=== PATIENT | male | born 1970 | race Caucasian/White ===

== ENCOUNTER → 2019-06-21 | Outpatient (CLI) | payer OTHER ==
[2019-06-21 11:11] LABS: HGB 14.7 gm/dL (13.0-17.5); MCH 30.2 pg (25.0-35.0); MCHC 34.1 g/dL (31.0-37.0); MCV 88.5 fL (80.0-100.0); Platelet Count 179 k/uL (150-450); RBC 4.86 m/uL (4.30-5.90); RDW 13.5 % (11.5-15.5); WBC 5.8 k/uL (3.8-10.6)
== END ==
LOC: LABPAT 10:14
PROVIDERS: ATTEND Surgery
DX: Z01.812 Encounter for preprocedural laboratory examination (principal); K40.90 Unilateral inguinal hernia, without obstruction or gangrene, not specified as recurrent
CPT/HCPCS: 36415; 85027

== ENCOUNTER 2019-06-26 08:36 | Day surgery (SDC) | payer OTHER ==
[2019-06-20 10:26] VITALS: BMI 29.9
[~2019-06-26 08:36] MED LIST: DEXAMETHASONE SOD PHOSPHATE 10 MG/ML 1 ML VIAL IV ONE; HEPARIN SODIUM,PORCINE 5,000 UNIT/ML 1 ML VIAL SQ ONE; HYDROmorphone 0.5 MG/0.5 ML SYRINGE IVP PRN; LIDOCAINE 1% 20 ML VIAL (10MG/ML) FOR IV START INTRADERMA PRN; ONDANSETRON 4 MG/2 ML VIAL IVP ONE; SCOPOLAMINE 1.5MG/72HR PATCH TRANSDERM ONE
--- NOTE | 2019-06-26 08:57 | P.GSHP ---
History of Present Illness H&P Date: 06/26/19 Chief Complaint: Right inguinal hernia 49-year-old male seen in the office over the last few months with complaints of pain right groin. Started last June. He has a bulge there as well. 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 Pain aggravated with movement. 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 Past Medical History Past Medical History: Atrial Fibrillation Additional Past Medical History / Comment(s): hernia,medro dose pack June 2019 tx sorethroat,afib dx 2012,close head injury 2005 History of Any Multi-Drug Resistant Organisms: None Reported Past Surgical History: No Surgical Hx Reported Additional Past Surgical History / Comment(s): anesthesia for dental work Past Anesthesia/Blood Transfusion Reactions: No Reported Reaction Additional Past Anesthesia/Blood Transfusion Reaction / Comment(s): no blood transfusion Smoking Status: Former smoker - Past Family History Mother Family Medical History: No Reported History Medications and Allergies Home Medications Medication Instructions Recorded Confirmed Type Aspirin 81 mg PO DAILY 06/20/19 06/20/19 History Atenolol [Tenormin] 25 mg PO QAM 06/20/19 06/20/19 History Omeprazole 20 mg PO QAM 06/20/19 06/20/19 History Allergies Allergy/AdvReac Type Severity Reaction Status Date / Time No Known Allergies Allergy Verified 06/26/19 08:54 Surgical - Exam Physical exam: General: Well-developed, well-nourished HEENT: Normocephalic, sclerae nonicteric Abdomen: Nontender, nondistended, reducible right inguinal hernia Extremities: No edema Neuro: Alert and oriented Assessment and Plan (1) Right inguinal hernia Narrative/Plan: Option review the patient in detail. We'll proceed with laparoscopic da Cinthia assisted repair right inguinal herniorrhaphy with mesh, possible bilateral, possible open. Risks of bleeding, infection, recurrence, bladder and bowel injury, numbness, nerve injury, conversion to an open procedure were discussed with the patient. The patient understands and wishes to proceed. Current Visit: Yes Status: Acute Code(s): K40.90 - UNIL INGUINAL HERNIA, W/O OBST OR GANGR, NOT SPCF RECUR SNOMED Code(s): 306881099
[2019-06-26 08:59] VITALS: RESP 16
[2019-06-26] MEDS ORDERED: LIDOCAINE 1% 20 ML VIAL (10MG/ML) FOR IV START INTRADERMA ONE (09:15)
[2019-06-26] MEDS: LACTATED RINGERS 1,000 ML IV SCH (09:15)
[2019-06-26] MEDS ORDERED: PROPOFOL 10 MG/ML 20 ML VIAL IV ONE (09:29)
[2019-06-26] MEDS ORDERED: NEOSTIGMINE 1 MG/ML 10 ML VIAL ONE (09:29)
[2019-06-26] MEDS ORDERED: KETOROLAC 30 MG/ML 1 ML VIAL ONE (09:29)
[2019-06-26] MEDS ORDERED: MIDAZOLAM 2 MG/2 ML VIAL ONE (09:29)
[2019-06-26] MEDS ORDERED: ROCURONIUM BROMIDE 10 MG/ML 10 ML VIAL IV ONE (09:29)
[2019-06-26] MEDS ORDERED: GLYCOPYRROLATE 0.2 MG/ML 2 ML VIAL ONE (09:29)
[2019-06-26] MEDS ORDERED: ePHEDrine SULFATE/0.9% NACL/PF 50 MG/5 ML SYRINGE IV ONE (09:29)
[2019-06-26] MEDS ORDERED: KETAMINE 10 MG/ML 20 ML VIAL ONE (09:29)
[2019-06-26] MEDS ORDERED: SUCCINYLCHOLINE CHLORIDE 100 MG/5 ML SYR IV ONE (09:29)
[2019-06-26] MEDS ORDERED: LIDOCAINE 1% INJ 10MG/ML (20 ML MDV) ONE (09:29)
[2019-06-26] MEDS ORDERED: fentaNYL (PF) 50 MCG/ML 2 ML AMP ONE (09:29)
[2019-06-26] MEDS ORDERED: BUPIVACAIN-EPI 0.25%-1:200,000 30 ML VIAL SQ ONE (10:09)
[2019-06-26] MEDS ORDERED: LACTATED RINGERS 1,000 ML IV ONE (11:15)
[2019-06-26] MEDS ORDERED: LABETALOL SYRINGE 5 MG/ML IVP ONE (12:00)
[2019-06-26] MEDS ORDERED: LABETALOL 5 MG/ML VIAL MDV IVP ONE (12:06)
[2019-06-26] MEDS ORDERED: hydrALAZINE HCL 20 MG/ML 1 ML VIAL IVP ONE (12:07)
[2019-06-26] MEDS ORDERED: HYDROcodone/APAP 5-325MG 1 EACH TAB PO PRN (12:08)
[2019-06-26] MEDS ORDERED: NALOXONE 0.4 MG/ML 1 ML VIAL IV PRN (12:08)
--- NOTE | 2019-06-26 12:11 | P.OP ---
Date of Procedure: 06/26/19 Procedure(s) Performed: PREOPERATIVE DIAGNOSIS: Right inguinal hernia POSTOPERATIVE DIAGNOSIS: Bilateral inguinal hernia PROCEDURE: Laparoscopic repair bilateral inguinal hernia with the da Cinthia robot assistance with mesh SURGEON: Litzy EBL: Minimal ANESTHESIA: General COMPLICATIONS: None OPERATIVE PROCEDURE: Patient was placed in the operating table in the supine position. The patient was placed under general anesthesia. The abdomen was prepped and draped in usual sterile fashion. A small curvilinear supraumbilical incision was made. The fascia was retracted anteriorly with [place] forceps. The Veress needle was inserted. The saline drop test was normal. Insufflation took place to 15 mmHg. A 5 mm trocar was placed into the peritoneal cavity. This was later switched to a 12 mm trocar. 2 additional 8 mm trochars were placed in the right upper quadrant and left upper quadrant under visualization. The robotic arms were then brought in and docked into place. The fenestrated bipolar was used in the left arm and the laparoscopic douglas was utilized in the right arm. A 30 12 mm scope was used in the up position. The peritoneal cavity was inspected. Patient had an obvious direct hernia on the right side. A small indirect hernia was also identified in the left side. We decided to repair both hernias at this time. The right side was first addressed. The peritoneum was incised in a horizontal fashion cephalad to the internal inguinal ring. Following that careful dissection of the preperitoneal space took place. This took place using both electrocautery, sharp dissection but primarily blunt dissection. Visualization of the pubic tubercle and Sanjeev's ligament took place medially. Full dissection took place laterally as well. The hernia sac was fully dissected. The direct hernia was fairly large. I would estimate a 2 cm opening. The right side was then addressed. A slower incision was made in the peritoneum. The prevertebral space was again dissected. On the side and other small direct hernia was also identified during our dissection. Once we had adequate space bilaterally the 15 x 10 progrip mesh was advanced into the preperitoneal space and flattened out appropriately to cover all potential hernia sites. The 2 portions of mesh were allowed to cover one another in the midline anterior to the bladder. No sutures were used. The peritoneal defect was then closed using 2 separate 2-0 VLok sutures. The pneumoperitoneum was then evacuated. The fascia at the 12 mm site was closed using the Sherman Morgan technique and an 0 Vicryl stitch. The skin of all 3 sites was closed using a 4-0 Monocryl stitch. Skin glue was then applied. DISPOSITION: Stable to recovery room
[2019-06-26 12:13] VITALS: TEMP 99.7
[2019-06-26 12:24] LABS: Glucose,Whole Blood 115 mg/dL (75-99)
[2019-06-26 14:22] VITALS: BP 131/84; PULSE 80
== END 2019-06-26 14:22 | disposition home or self-care (01) ==
LOC: OR 08:36
PROVIDERS: ATTEND Surgery
DX: K40.20 Bilateral inguinal hernia, without obstruction or gangrene, not specified as recurrent (principal); I48.91 Unspecified atrial fibrillation; Z87.820 Personal history of traumatic brain injury; Z87.891 Personal history of nicotine dependence; Z79.82 Long term (current) use of aspirin; Z79.899 Other long term (current) drug therapy

== ENCOUNTER 2019-08-21 08:59 | Day surgery (SDC) | payer OTHER ==
[2019-08-16 15:53] VITALS: BMI 30.1
[~2019-08-21 08:59] MED LIST changes: -DEXAMETHASONE SOD PHOSPHATE 10 MG/ML 1 ML VIAL IV ONE; -HEPARIN SODIUM,PORCINE 5,000 UNIT/ML 1 ML VIAL SQ ONE; -HYDROmorphone 0.5 MG/0.5 ML SYRINGE IVP PRN; +LACTATED RINGERS 1,000 ML IV SCH; -ONDANSETRON 4 MG/2 ML VIAL IVP ONE; -SCOPOLAMINE 1.5MG/72HR PATCH TRANSDERM ONE
[2019-08-21 09:48] VITALS: RESP 16; TEMP 98.4
[2019-08-21] MEDS ORDERED: PROPOFOL 10 MG/ML 20 ML VIAL IV ONE (10:09)
--- NOTE | 2019-08-21 10:40 | P.PCN ---
Date of Procedure: 08/21/19 Procedure(s) Performed: PREOPERATIVE DIAGNOSIS: Rectal bleeding POSTOPERATIVE DIAGNOSIS: Diverticulosis, perianal skin tag, hemorrhoids PROCEDURE: Colonoscopy with excision perianal skin tag ANESTHESIA: MAC SURGEON: Fernandez Mcghee M.D. SPECIMENS: Skin tag ENDOSCOPIC PROCEDURE: The patient was placed on the endoscopy table in the left decubitus position. The Olympus colonoscope was inserted into the anus and passed under direct visualization to the base of the cecum. The appendiceal orifice was visualized. From that point the scope was slowly withdrawn inspecting all surfaces carefully. There were no neoplastic inflammatory or polypoid lesions throughout the cecum, ascending, transverse, descending, sigmoid and rectum. There was mild scattered diverticulosis noted. Digital rectal examination revealed both internal and external hemorrhoids. More of an internal component. Patient had a 1 cm skin tag in the left lateral position. The left side is the area where the patient noticed something protruding. We decided to proceed with excision. The area was localized after prepping that a geovanna sterilely. A 3-0 Vicryl stitch was used to ligate the skin tag site. Small amount of bruising from the localization noted. No active bleeding. The patient was taken to the recovery room in stable condition per anesthesia guidelines. RECOMMENDATIONS: Increase fiber. Follow-up office 1 month.
[2019-08-21 11:29] VITALS: BP 126/86; PULSE 56
== END 2019-08-21 11:51 | disposition home or self-care (01) ==
LOC: ORWHC2ENDO 08:59
PROVIDERS: ATTEND Surgery
DX: K57.31 Diverticulosis of large intestine without perforation or abscess with bleeding (principal); K64.4 Residual hemorrhoidal skin tags; K64.8 Other hemorrhoids; K21.9 Gastro-esophageal reflux disease without esophagitis; I48.91 Unspecified atrial fibrillation; Z87.891 Personal history of nicotine dependence; Z79.82 Long term (current) use of aspirin; Z79.899 Other long term (current) drug therapy; Z88.4 Allergy status to anesthetic agent
CPT/HCPCS: 88304; 45378; J2704

== ENCOUNTER → 2019-09-24 | Outpatient (CLI) | payer OTHER ==
--- NOTE | 2019-09-24 12:59 | XR ---
EXAMINATION TYPE: XR chest 2V DATE OF EXAM: 09/24/2019 COMPARISON: CT chest 05/22/2013 HISTORY: Shortness of breath TECHNIQUE: Frontal and lateral views of the chest are obtained. FINDINGS: Patient is rotated. There is no focal air space opacity, pleural effusion, or pneumothorax seen. The cardiac silhouette size is within normal limits. The osseous structures are intact. IMPRESSION: No acute cardiopulmonary process.
== END | disposition home or self-care (01) ==
LOC: RADXRMAIN 10:59
PROVIDERS: ATTEND Internal Medicine
DX: R06.02 Shortness of breath (principal)
CPT/HCPCS: 71046

== ENCOUNTER 2024-10-13 09:43 | Observation (INO) | payer OTHER ==
--- NOTE | 2024-10-13 10:24 | ED ---
General Adult HPI - General Chief complaint: Nausea/Vomiting/Diarrhea Stated complaint: Fall,Vomiting,Diarrhea Time Seen by Provider: 10/13/24 10:18 Source: patient, family (Patient's mother), RN notes reviewed Mode of arrival: ambulatory Limitations: no limitations - History of Present Illness Initial comments: Patient is a 54-year-old male presenting to the ER for evaluation of fall. 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 He states he was ice-skating for approximately 9 hockey games. Patient states on his way home last night he stopped at a gas station and got a soda. He states this was a phone soda that tasted abnormal so he dumped it out. He states when he got home he ate a market male from [employer] and went to bed. Patient reports around 4 AM he woke up and had multiple bouts of emesis and diarrhea. He denies any hemtaemesis or melena. He does states hematochezia but reports he has a hemorrhoid and this is normal for him. Patient reports he went back to bed to lay down and was tossing and turning for another hour until he finally got up to go downstairs and get a drink of water. Patient remembers walking to the stairs and the next thing he remembers is waking up at the bottom of the stairs with his mother standing over him. Patient is not on any blood thinners. Mother reports she heard him fall and immediately got out of bed and found him down. Complaining of neck discomfort. He does report a remote history of atrial fibrillation for which he takes atenolol. Patient is currently complaining of a sore chest discomfort with radiation to his back. Denies shortness of breath, dizziness, lightheadedness, abdominal pain, urinary complaints or peripheral edema. - Related Data Home Medications Medication Instructions Recorded Confirmed Omeprazole 20 mg PO DAILY 06/20/19 10/13/24 Levothyroxine Sodium [Synthroid] 50 mcg PO DAILY 10/13/24 10/13/24 atenoloL [Tenormin] 50 mg PO DAILY 10/13/24 10/13/24 Allergies Allergy/AdvReac Type Severity Reaction Status Date / Time fentanyl AdvReac apnea Verified 10/13/24 13:05 Review of Systems ROS Statement: Those systems with pertinent positive or pertinent negative responses have been documented in the HPI. ROS Other: All systems not noted in ROS Statement are negative. Past Medical History Past Medical History: Atrial Fibrillation Additional Past Medical History / Comment(s): hernia,medro dose pack June 2019 tx sorethroat,afib dx 2012,close head injury 2005 History of Any Multi-Drug Resistant Organisms: None Reported Past Surgical History: Hernia Repair Additional Past Surgical History / Comment(s): hernesto inguinal hernia repair 06-26-19,anesthesia for dental work Past Anesthesia/Blood Transfusion Reactions: Family History of Problems w/ Anesthesia Additional Past Anesthesia/Blood Transfusion Reaction / Comment(s): stated was given fentanyl post op for hernia repair on 06-26-19 causing apnea resulting in bag mask ventilation in recovery room. no hx blood transfusion Past Psychological History: No Psychological Hx Reported Smoking Status: Never smoker Past Alcohol Use History: None Reported Past Drug Use History: Marijuana - Past Family History Mother Family Medical History: No Reported History General Exam Limitations: no limitations General appearance: alert, in no apparent distress Head exam: Present: atraumatic, normocephalic, normal inspection Eye exam: Present: normal appearance, PERRL, EOMI. Absent: scleral icterus, conjunctival injection, periorbital swelling Pupils: Present: normal accommodation ENT exam: Present: normal exam, normal oropharynx, mucous membranes moist Neck exam: Present: normal inspection, tenderness (sparspinal muscles), full ROM Respiratory exam: Present: normal lung sounds bilaterally. Absent: respiratory distress, wheezes, rales, rhonchi, stridor Cardiovascular Exam: Present: regular rate, normal rhythm, normal heart sounds. Absent: systolic murmur, diastolic murmur, rubs, gallop, clicks GI/Abdominal exam: Present: soft, normal bowel sounds. Absent: distended, tenderness, guarding, rebound, rigid Extremities exam: Present: normal inspection, full ROM, normal capillary refill. Absent: tenderness, pedal edema, joint swelling, calf tenderness Back exam: Present: normal inspection Neurological exam: Present: alert, oriented X3, CN II-XII intact Skin exam: Present: warm, dry, intact, normal color. Absent: rash Course Vital Signs 10/13/24 10/13/24 10/13/24 09:48 10:25 11:00 Temperature 98.3 F Pulse Rate 104 H 92 97 Respiratory 20 16 16 Rate Blood Pressure 127/77 105/100 131/91 O2 Sat by Pulse 97 96 95 Oximetry 10/13/24 10/13/24 12:16 13:09 Temperature Pulse Rate 91 96 Respiratory 16 16 Rate Blood Pressure 141/91 136/86 O2 Sat by Pulse 98 96 Oximetry - Reevaluation(s) Reevaluation #1: 10/13/24 12:[address] Pantoja for admission. 10/13/24 14:08 HEART score 3. EKG Findings - EKG Comments: EKG Findings:: EKG taken at 9: 57 showing a sinus rhythm. No acute ST segment or T wave abnormalities. Ventricular rate 92, SD interval 165, QRS duration 114, QT/QTc 358/407. Medical Decision Making - Medical Decision Making Was pt. sent in by a medical professional or institution (, PA, CARRY OUT CLERK AND SHELF STOCKER, urgent care, hospital, or senior living...) When possible be specific @ -No Did you speak to anyone other than the patient for history (EMS, parent, family, police, friend...)? What history was obtained from this source @ -Patient's mother, at bedside, aiding in HPI. Did you review nursing and triage notes (agree or disagree)? Why? @ -I reviewed and agree with nursing and triage notes Were old charts reviewed (outside hosp., previous admission, EMS record, old EKG, old radiological studies, urgent care reports/EKG's, senior living records)? Report findings @ -No old charts were reviewed Differential Diagnosis (chest pain, altered mental status, abdominal pain women, abdominal pain men, vaginal bleeding, weakness, fever, dyspnea, syncope, headache, dizziness, GI bleed, back pain, seizure, CVA, palpatations, mental health, musculoskeletal)? @ -Differential Syncope:Valvular disease, hypertrophic cardiomyopathy, pulmonary embolism, tamponade, tachycardia, bradycardia, NM, hypovolemia, hemorrhage, dissection, anemia, intracranial hemorrhage, seizure, hypoglycemia, carbon monoxide poisoning, this is not meant to be an all-inclusive list. EKG interpreted by me (3pts min.). @ -As above X-rays interpreted by me (1pt min.). @ -CXR negative for acute process. CT interpreted by me (1pt min.). @ -CT brain C-spine negative for acute bleed or mass effect. Remote right frontal lobe encephalomalacia prior to infarct or trauma. No cervical spine fractures or dislocations. U/S interpreted by me (1pt. min.). @ -None done What testing was considered but not performed or refused? (CT, X-rays, U/S, labs)? Why? @ -None What meds were considered but not given or refused? Why? @ -None Did you discuss the management of the patient with other professionals (professionals i.e. DrKaylene, PA, CARRY OUT CLERK AND SHELF STOCKER, lab, RT, psych nurse, hospice social worker, vector control specialist, teacher, program officer, outpatient case manager)? Give summary @ -Yes, case was discussed with Dr. Pantoja for admission. Was smoking cessation discussed for >3mins.? @ -No Was critical care preformed (if so, how long)? @ -No Were there social determinants of health that impacted care today? How? (Homelessness, low income, unemployed, alcoholism, drug addiction, transportatio n, low edu. Level, literacy, decrease access to med. care, [facility], rehab)? @ -No Was there de-escalation of care discussed even if they declined (Discuss DNR or withdrawal of care, Hospice)? DNR status @ -No What co-morbidities impacted this encounter? (DM, HTN, Smoking, COPD, CAD, Cancer, CVA, ARF, Chemo, Hep., AIDS, mental health diagnosis, sleep apnea, morbid obesity)? @ -History of atrial fibrillation. Was patient admitted / discharged? Hospital course, mention meds given and route, prescriptions, significant lab abnormalities, going to OR and other pertinent info. @ -Admitted. 54-year-old male presenting to the ER for evaluation of possible syncopal episode. History and physical exam completed. Vitals within normal limits. Patient no signs of acute distress ANO x 3. Exam benign. Syncopal workup will be obtained as patient does not remember falling and woke up on the ground at the bottom of the stairs. CBC remarkable for WBC 9.0 with a left shift of 8.3. D-dimer negative at 0.28. Troponin undetectable. CMP unimpressive. Urinalysis with 1+ ketones concerning of dehydration which is likely due to nausea vomiting diarrhea. Viral swabs negative. CT brain neg ative for acute process. Chest x-ray negative. EKG showed normal sinus rhythm. Patient given IV fluids and Toradol in the ER for pain control. Neck pain believed to be musculoskeletal in nature due to fall. Admission considered and discussed with Dr. Pantoja for cardiac rule out as there is a possible syncopal episode. Heart score 3. Serial troponins ordered. Patient is agreeable for admission. Case discussed with ED attending, Dr. Carrera. Undiagnosed new problem with uncertain prognosis? @ -No Drug Therapy requiring intensive monitoring for toxicity (Heparin, Nitro, Insulin, Cardizem)? @ -No Were any procedures done? @ -No Diagnosis/symptom? @ -Syncope/neck pain Acute, or Chronic, or Acute on Chronic? @ -Acute Uncomplicated (without systemic symptoms) or Complicated (systemic symptoms)? @ -Complicated Side effects of treatment? @ -No Exacerbation, Progression, or Severe Exacerbation? @ -No Poses a threat to life or bodily function? How? (Chest pain, USA, NM, pneumonia, PE, COPD, DKA, ARF, appy, cholecystitis, CVA, Diverticulitis, Homicidal, Suicidal, threat to staff... and all critical care pts) @ -Yes, ACS can lead to lethal cardiac arrhythmias. - Lab Data Result diagrams: 10/13/24 10:57 10/13/24 10:57 Lab Results 10/13/24 10/13/24 10/13/24 Range/Units 10:57 10:57 10:57 WBC 9.0 (3.8-10.6) k/uL RBC 4.56 (4.30-5.90) m/uL Hgb 14.3 (13.0-17.5) gm/dL Hct 41.1 (39.0-53.0) % MCV 90.3 (80.0-100.0) fL MCH 31.3 (25.0-35.0) pg MCHC 34.7 (31.0-37.0) g/dL RDW 12.8 (11.5-15.5) % Plt Count 176 (150-450) k/uL MPV 9.4 Neutrophils % 92 % Lymphocytes % 3 % Monocytes % 4 % Eosinophils % 1 % Basophils % 0 % Neutrophils # 8.3 H (1.3-7.7) k/uL Lymphocytes # 0.2 L (1.0-4.8) k/uL Monocytes # 0.4 (0-1.0) k/uL Eosinophils # 0.1 (0-0.7) k/uL Basophils # 0.0 (0-0.2) k/uL PT 10.7 (10.0-12.5) sec INR 1.0 (<1.2) APTT 23.6 (22.0-30.0) sec D-Dimer 0.28 (<0.60) mg/L FEU Sodium 135 L (137-145) mmol/L Potassium 4.1 (3.5-5.1) mmol/L Chloride 104 (98-107) mmol/L Carbon Dioxide 26 (22-30) mmol/L Anion Gap 5 mmol/L BUN 29 H (9-20) mg/dL Creatinine 0.75 (0.66-1.25) mg/dL Est GFR (CKD-EPI)AfAm >90 (>60 ml/min/1.73 sqM) Est GFR (CKD-EPI)NonAf >90 (>60 ml/min/1.73 sqM) Glucose 127 H (74-99) mg/dL Calcium 8.4 (8.4-10.2) mg/dL Magnesium 1.7 (1.6-2.3) mg/dL Total Bilirubin 1.3 (0.2-1.3) mg/dL AST 34 (17-59) U/L ALT 30 (4-49) U/L Alkaline Phosphatase 57 (38-126) U/L Troponin I (0.000-0.034) ng/mL Total Protein 6.7 (6.3-8.2) g/dL Albumin 4.5 (3.5-5.0) g/dL 10/13/24 Range/Units 10:57 WBC (3.8-10.6) k/uL RBC (4.30-5.90) m/uL Hgb (13.0-17.5) gm/dL Hct (39.0-53.0) % MCV (80.0-100.0) fL MCH (25.0-35.0) pg MCHC (31.0-37.0) g/dL RDW (11.5-15.5) % Plt Count (150-450) k/uL MPV Neutrophils % % Lymphocytes % % Monocytes % % Eosinophils % % Basophils % % Neutrophils # (1.3-7.7) k/uL Lymphocytes # (1.0-4.8) k/uL Monocytes # (0-1.0) k/uL Eosinophils # (0-0.7) k/uL Basophils # (0-0.2) k/uL PT (10.0-12.5) sec INR (<1.2) APTT (22.0-30.0) sec D-Dimer (<0.60) mg/L FEU Sodium (137-145) mmol/L Potassium (3.5-5.1) mmol/L Chloride (98-107) mmol/L Carbon Dioxide (22-30) mmol/L Anion Gap mmol/L BUN (9-20) mg/dL Creatinine (0.66-1.25) mg/dL Est GFR (CKD-EPI)AfAm (>60 ml/min/1.73 sqM) Est GFR (CKD-EPI)NonAf (>60 ml/min/1.73 sqM) Glucose (74-99) mg/dL Calcium (8.4-10.2) mg/dL Magnesium (1.6-2.3) mg/dL Total Bilirubin (0.2-1.3) mg/dL AST (17-59) U/L ALT (4-49) U/L Alkaline Phosphatase (38-126) U/L Troponin I <0.012 (0.000-0.034) ng/mL Total Protein (6.3-8.2) g/dL Albumin (3.5-5.0) g/dL - Radiology Data Radiology results: report reviewed, image reviewed Disposition Clinical Impression: Syncope, Neck pain Disposition: ADMITTED IP TO THIS [facility] Condition: Stable Time of Disposition: 12:15
--- NOTE | 2024-10-13 10:35 | XR ---
2 view chest HISTORY: Chest pain COMPARISON: 09/24/2019 TECHNIQUE: PA and lateral views chest obtained. FINDINGS: The lungs are clear of consolidative, interstitial or masslike opacity. There is no pleural effusion, pleural thickening or pneumothorax. The heart, pulmonary vasculature, mediastinum and jessi are within normal limits. The osseous structures and soft tissues of the thorax are intact. IMPRESSION: No significant abnormality. No acute cardiopulmonary disease. [facility], Workstation: [id number] 10/13/2024 10:33 AM
--- NOTE | 2024-10-13 11:02 | CT ---
EXAMINATION TYPE: CT brain lauren wo con DATE OF EXAM: 10/13/2024 COMPARISON: None CLINICAL INDICATION: Male, 54 years old with history of fall/ neck pain; PHH, LEFT SIDED NECK PAIN AF TER FALL TECHNIQUE: CT scan of the head and cervical spine are performed without contrast. CT DLP: [address] CTDI: mGy Automated exposure control for dose reduction was used. Findings: Head CT: Ventricles, basal cisterns and sulci over convexities within normal limits and there is no mass, mass effect or shift of midline structures. There is a focal area of encephalomalacia involving the right frontal cortex consistent with a remote infarct or prior trauma. There is no acute intra or extra-axial hemorrhage.. Posterior fossa including the brainstem, fourth ventricle and cerebellar pontine angles are grossly n ormal. The intraorbital contents appear normal and symmetric. Visualized paranasal sinuses are well aerated. CT cervical spine: Craniovertebral junction relationships and prevertebral soft tissues are normal. The cervical vertebral segments are normal in height and alignment and there is no fracture subluxati on. There is mild to moderate degenerative disease at the C5-6 level where there is mild spondylosis and disc space narrowing. There is mild degeneration of the vertebral joints lower cervical spine. There is mild bony neural foraminal stenosis at the C4-5 and C5-6 levels on the right. Paraspinal soft tissues unremarkable. No bony encroachment of the cervical canal. IMPRESSION: 1. Head CT: No acute bleed or mass effect. Remote right frontal lobe encephalomalacia from prior infa rct or trauma. 2. CT cervical spine: No acute trauma. Mild degenerative changes as described above. [facility], Workstation: [facility], 10/13/2024 11:00 AM
[2024-10-13] MEDS: SODIUM CHLORIDE 0.9% 1,000 ML IV STA ×2 (11:04→13:35)
[2024-10-13 11:33] LABS: Basophils % (A) 0 %; Eosinophils # (A) 0.1 k/uL (0-0.7); Eosinophils % (A) 1 %; HCT 41.1 % (39.0-53.0); HGB 14.3 gm/dL (13.0-17.5); Lymphocytes # (A) 0.2 k/uL (1.0-4.8); Lymphocytes % (A) 3 %; MCH 31.3 pg (25.0-35.0); MCHC 34.7 g/dL (31.0-37.0); MCV 90.3 fL (80.0-100.0); Mean Platelet Volume 9.4; Monocytes # (A) 0.4 k/uL (0-1.0); Monocytes % (A) 4 %; Neutrophils # (A) 8.3 k/uL (1.3-7.7); Neutrophils % (A) 92 %; Platelet Count 176 k/uL (150-450); RBC 4.56 m/uL (4.30-5.90); RDW 12.8 % (11.5-15.5)
[2024-10-13 11:45] LABS: Partial Thromboplastin Time 23.6 sec (22.0-30.0); Prothrombin Time 10.7 sec (10.0-12.5)
[2024-10-13 11:46] LABS: ALT 30 U/L (4-49); AST 34 U/L (17-59); African American GFR (CKD) >90 (>60 ml/min/1.73 sqM); Albumin 4.5 g/dL (3.5-5.0); Alkaline Phosphatase 57 U/L (38-126); Anion Gap 5 mmol/L; Blood Urea Nitrogen 29 mg/dL (9-20); Calcium 8.4 mg/dL (8.4-10.2); Carbon Dioxide 26 mmol/L (22-30); Chloride 104 mmol/L (98-107); Glucose 127 mg/dL (74-99); Magnesium 1.7 mg/dL (1.6-2.3); Non-African American GFR(CKD) >90 (>60 ml/min/1.73 sqM); Potassium 4.1 mmol/L (3.5-5.1); Sodium 135 mmol/L (137-145); Total Bilirubin 1.3 mg/dL (0.2-1.3); Total Protein 6.7 g/dL (6.3-8.2)
[2024-10-13] MEDS ORDERED: ACETAMINOPHEN TAB 325 MG TAB PO PRN (12:13)
[2024-10-13] MEDS ORDERED: NALOXONE 0.4 MG/ML 1 ML VIAL IV PRN (12:13)
[2024-10-13] MEDS: KETOROLAC 15 MG/ML 1 ML VIAL IVP STA (12:17)
[2024-10-13 12:37] LABS: Appearance,Urine Clear (Clear); Bilirubin,Urine Negative (Negative); Blood,Urine Negative (Negative); Color,Urine Light Yellow; Glucose,Urine (UA) Negative (Negative); Ketones,Urine 1+ (Negative); Leukocyte Esterase,Urine Negative (Negative); Nitrite,Urine Negative (Negative); Protein,Urine Negative (Negative); Specific Gravity,Urine 1.021 (1.001-1.035); Urobilinogen,Urine <2.0 mg/dL (<2.0)
[2024-10-13] MEDS: SODIUM CHLORIDE 0.9% 1,000 ML IV SCH (13:07)
--- NOTE | 2024-10-13 13:07 | P.HPIM ---
History of Present Illness H&P Date: 10/13/24 Marco Garcia, is a 54-year-old male who presented to [facility] emergency room with a chief complaint of syncope. Patient stated that he was then referred to you for multiple hockey games, he came back late at night and ate a frozen meal and went to sleep, he woke up several hours later with nausea vomiting and diarrhea, subsequently he felt dizzy and passed out going down 1 flight of stairs, he woke up on the bottom of the stairs, he is not sure for how long he was unconscious. He was evaluated in the emergency room vital examination on presentation revealed a temperature of 98.3 pulse 104 respiration 20 blood pressure 127/77 pulse ox 97% on room air Laboratory data revealed a white blood count of 9.0 hemoglobin 14.3 platelet count 176 D-dimer 0.28 troponin 0.012, COVID-19 and influenza A and B and RSV PCR are all negative. 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 Chest x-ray done in the emergency room revealed no significant abnormality no acute cardiopulmonary disease. Patient was admitted to medical floor for further evaluation and treatment Past medical history is significant for 1 episode of atrial fibrillation 12 years ago, history of closed head injury, history of gastroesophageal reflux disease On review of systems patient is alert and oriented x 3 in no apparent distress, he is complaining of neck pain, otherwise he denies any complaints at this time there is no fever or chills no headache or dizziness no chest pain no shortness of breath no cough no nausea or vomiting no abdominal pain no diarrhea and no urinary symptoms. Past Medical History Past Medical History: Atrial Fibrillation Additional Past Medical History / Comment(s): hernia,medro dose pack June 2019 tx sorethroat,afib dx 2012,close head injury 2005 History of Any Multi-Drug Resistant Organisms: None Reported Past Surgical History: Hernia Repair Additional Past Surgical History / Comment(s): hernesto inguinal hernia repair 06-26-19,anesthesia for dental work Past Anesthesia/Blood Transfusion Reactions: Family History of Problems w/ Anesthesia Additional Past Anesthesia/Blood Transfusion Reaction / Comment(s): stated was given fentanyl post op for hernia repair on 06-26-19 causing apnea resulting in bag mask ventilation in recovery room. no hx blood transfusion Past Psychological History: No Psychological Hx Reported Smoking Status: Never smoker Past Alcohol Use History: None Reported Past Drug Use History: Marijuana - Past Family History Mother Family Medical History: No Reported History Medications and Allergies Home Medications Medication Instructions Recorded Confirmed Type Aspirin 81 mg PO DAILY 06/20/19 08/16/19 History Omeprazole 20 mg PO QAM 06/20/19 08/16/19 History atenoloL [Tenormin] 25 mg PO QAM 06/20/19 08/16/19 History Allergies Allergy/AdvReac Type Severity Reaction Status Date / Time fentanyl AdvReac apnea Verified 10/13/24 09:52 Physical Exam Vitals: Vital Signs Temp Pulse Resp BP Pulse Ox 10/13/24 12:16 91 16 141/91 98 10/13/24 11:00 97 16 131/91 95 10/13/24 10:25 92 16 105/100 96 10/13/24 09:48 98.3 F 104 H 20 127/77 97 Intake and Output 10/12/24 10/13/24 10/13/24 22:59 06:59 14:59 Other: Weight 91.626 kg In general patient is alert and oriented x 3 in no distress HEENT head normocephalic and atraumatic Neck is supple no JVD no goiter no lymphadenopathy no carotid bruit Chest examination is clear to auscultation no crackles no wheezing Cardiac exam reveals regular heart sounds S1 and S2 no gallops no murmurs Abdomen is soft nontender no organomegaly with normal bowel sounds Extremity exam reveals no edema no cyanosis or clubbing Neurological examination reveals no gross focal deficits Results CBC & Chem 7: 10/13/24 10:57 10/13/24 10:57 Labs: Abnormal Lab Results - Last 24 Hours (Table) 10/13/24 10/13/24 10/13/24 Range/Units 10:57 10:57 12:25 Neutrophils # 8.3 H (1.3-7.7) k/uL Lymphocytes # 0.2 L (1.0-4.8) k/uL Sodium 135 L (137-145) mmol/L BUN 29 H (9-20) mg/dL Glucose 127 H (74-99) mg/dL Urine Ketones 1+ H (Negative) Assessment and Plan Plan: Gastroenteritis with nausea vomiting and diarrhea Mild dehydration with elevated BUN Syncopal episode Previous history of 1 episode of atrial fibrillation Underlying history of gastroesophageal reflux disease At this time patient was seen and examined Will check echocardiogram and carotid Doppler Cardiology consult requested Will monitor on telemetry Will follow in a.m.
--- NOTE | 2024-10-13 14:16 | US ---
EXAMINATION TYPE: US carotid duplex BILAT DATE OF EXAM: 10/13/2024 COMPARISON: NONE CLINICAL INDICATION: Male, 54 years old with history of Syncope; No HTN. Patient states he passed ou t. TECHNIQUE: Grayscale, color Doppler and spectral Doppler evaluation of the bilateral carotid systems and vertebral arteries. Indirect Doppler criteria was utilized. 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 No plaque seen. Color Doppler imaging shows patency with blood flow throughout the carotid artery. Spectral waveforms are within normal limits. IMPRESSION: Right: 50-69% stenosis of the carotid bifurcation. Left: 50-69% stenosis of the carotid bifurcation. Criteria for Assigning % of Stenosis / Diameter reduction (Estimation based on the indirect measurements of the internal carotid artery velocities (ICA PSV). 1. Normal (no stenosis)=ICA PSV < 125 cm/s: ratio < 2.0: ICA EDV<40 cm/s. 2. Less than 50% stenosis=ICA PSV < 125 cm/s: ratio < 2.0: ICA EDV<40 cm/s. 3. 50 to 69% stenosis=ICA PSV of 125 to 230 cm/s: ration 2.0 ? 4.0: ICA EDV 40-100 cm/s. 4. Greater than 70% stenosis to near occlusion= ICA PSV > 230 cm/s: ratio > 4.0: ICA EDV > 100 cm/s. 5. Near occlusion= ICA PSV velocities may be low or undetectable: variable ratio and ICA EDV. 6. Total occlusion=unable to detect flow. [facility], , 10/13/2024 2:14 PM
[2024-10-13] MEDS: PANTOPRAZOLE 40 MG TABLET PO SCH (14:48)
[2024-10-13] MEDS: ONDANSETRON 4 MG/2 ML VIAL IVP PRN (17:17)
[2024-10-13] MEDS: traMADol 50 MG TAB PO PRN (19:23)
[2024-10-14] MEDS: IBUPROFEN 400 MG TAB PO PRN (00:01)
[2024-10-14 07:34] VITALS: RESP 17
[2024-10-14 08:49] LABS: ALT 27 U/L (10-49); AST 31 U/L (14-35); Albumin 3.7 g/dL (3.8-4.9); Albumin/Globulin Ratio 2.18 Ratio (1.60-3.17); Alkaline Phosphatase 49 U/L (41-126); BUN/Creat Ratio 16.88 Ratio (12.00-20.00); Blood Urea Nitrogen 13.5 mg/dL (9.0-27.0); Calcium 7.9 mg/dL (8.7-10.3); Carbon Dioxide 24.4 mmol/L (21.6-31.8); Chloride 105 mmol/L (96-109); Globulin 1.7 g/dL (1.6-3.3); Glucose 104 mg/dL (70-110); Potassium 3.8 mmol/L (3.5-5.5); Sodium 138 mmol/L (135-145); Total Bilirubin 0.6 mg/dL (0.3-1.2); Total Protein 5.4 g/dL (6.2-8.2)
[2024-10-14 09:06] LABS: Basophils # (A) 0.01 X 10*3/uL (0.00-0.10); Basophils % (A) 0.3 %; Eosinophils # (A) 0 X 10*3/uL (0.04-0.35); Eosinophils % (A) 0 %; Lymphocytes # (A) 0.67 X 10*3/uL (0.90-5.00); Lymphocytes % (A) 18.7 %; MCH 30.8 pg (27.0-32.0); MCHC 34.3 g/dL (32.0-37.0); MCV 89.7 FL (80.0-97.0); Mean Platelet Volume 11.8 FL (9.5-12.2); Monocytes # (A) 0.41 X 10*3/uL (0.20-1.00); Monocytes % (A) 11.5 %; NRBC Per 100 WBC 0 X 10*3/uL (0.00-0.01); Neutrophils # (A) 2.48 X 10*3/uL (1.80-7.70); Neutrophils % (A) 69.2 %; Platelet Count 144 X 10*3/uL (140-440); RDW 12.3 % (11.5-14.5); WBC 3.58 X 10*3/uL (4.50-10.00)
[2024-10-14] MEDS: ENOXAPARIN 40 MG/0.4 ML SYRINGE SQ SCH (10:22)
--- NOTE | 2024-10-14 10:34 | US ---
EXAMINATION TYPE: US abdomen complete DATE OF EXAM: 10/14/2024 COMPARISON: NONE CLINICAL INDICATION: Male, 54 years old with history of Vomiting; vomiting TECHNIQUE: Grayscale and color Doppler imaging of the abdomen was performed. FINDINGS: EXAM MEASUREMENTS: Liver Length: 16.0 cm Gallbladder Wall: 0.2 cm CBD: 0.6 cm, color Doppler imaging was utilized to isolate the common bile duct for measurement. 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 The visualized abdominal aorta is within normal limits. There is no eviden ce of cholelithiasis. Common bile duct is unremarkable. The visualized portions of the pancreas are homogenous. The spleen is unremarkable. Kidneys are symmetric and free of hydronephrosis. No marlon l lesions are seen. IMPRESSION: No evidence for acute process. [facility], , 10/14/2024 10:32 AM
--- NOTE | 2024-10-14 10:47 | P.CRDCN ---
History of Present Illness Consult date: 10/14/24 Reason for Consult (text): Syncope History of present illness: This is a 54-year-old male with past medical history of hypertension, GERD, hypo thyroidism. We have been asked to evaluate patient for syncope. 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 He started vomiting around 4 in the morning and he thought he had food poisoning. The vomiting happened repeatedly and he had bilateral leg cramps and a little bit of diarrhea initially. He is feeling improved now and he has been maintained on IV fluids. Blood pressure 119/68, heart rate in the 60s to 100, pulse ox 98% on room air. -EKG: Sinus rhythm with no acute ST changes. -Chest x-ray: No acute abnormality -CT brain and cervical spine: No acute bleed or mass effect, no acute trauma in the cervical spine. 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 -Ultrasound of the abdomen: No acute process -Carotid ultrasound: 50 to 69% stenosis bilateral -Laboratory studies: WBC 3.5, hemoglobin 12, electrolytes are normal, BUN initially 29 now 13.5 and creatinine 0.8. Troponin negative x 3. Influenza A, influenza B, RSV, COVID-19 not detected. -Home cardiac medications: Atenolol 50 mg daily. -Echocardiogram 2016: EF 55 to 60%. Review Of Systems: At the time of my exam: CONSTITUTIONAL: Denies fever or chills. HEENT: Denies blurred vision, vision changes, or eye pain. Denies hemoptysis CARDIOVASCULAR: Denies chest pain. Denies orthopnea. Denies PND. Denies palpitations RESPIRATORY: Denies shortness of breath. GASTROINTESTINAL: Denies abdominal pain. Denies nausea or vomiting. HEMATOLOGIC: Denies bleeding disorders. GENITOURINARY: Denies any blood in urine. SKIN: Denies puritis. Denies rash. Physical examination: Gen: This is a 54-year-old male in no acute distress VS: reviewed HEENT: Head is atraumatic, normocephalic. Pupils equal, round. Sclerae is anicteric. NECK: Supple. No JVD. LUNGS: Clear to auscultation. No wheezes or rhonchi. No intercostal retractions. HEART: Regular rate and rhythm. No murmur. ABDOMEN: Soft No tenderness. EXTREMITIES: No pedal edema. No calf tenderness. NEUROLOGICAL: Patient is awake, alert and oriented x3. Assessment: Syncopal episode secondary to dehydration Nausea vomiting diarrhea Gastroenteritis History of hypertension GERD Hypothyroidism Plan: Resume patient's home cardiac medications Increase IV fluids to 100 cc/h Advance patient's diet Patient does not have to wait for the echocardiogram report Patient is cleared for discharge from cardiology perspective. Thank you kindly for this consultation. Nurse practitioner note has been reviewed, I agree with documented findings and plan of care. Patient was seen and examined. Past Medical History Past Medical History: Atrial Fibrillation Additional Past Medical History / Comment(s): hernia with repair,afib dx 2012,close head injury 2005 History of Any Multi-Drug Resistant Organisms: None Reported Past Surgical History: Hernia Repair Additional Past Surgical History / Comment(s): hernesto inguinal hernia repair 06-26-19,anesthesia for dental work Past Anesthesia/Blood Transfusion Reactions: Family History of Problems w/ Anesthesia Additional Past Anesthesia/Blood Transfusion Reaction / Comment(s): stated was given fentanyl post op for hernia repair on 06-26-19 causing apnea resulting in bag mask ventilation in recovery room. no hx blood transfusion Past Psychological History: No Psychological Hx Reported Smoking Status: Never smoker Past Alcohol Use History: None Reported Additional Past Alcohol Use History / Comment(s): quit smoking 2017,smoked socially Past Drug Use History: Marijuana Additional Drug Use History / Comment(s): uses THCS daily - Past Family History Mother Family Medical History: No Reported History Medications and Allergies Home Medications Medication Instructions Recorded Confirmed Type Omeprazole 20 mg PO DAILY 06/20/19 10/13/24 History Levothyroxine Sodium [Synthroid] 50 mcg PO DAILY 10/13/24 10/13/24 History atenoloL [Tenormin] 50 mg PO DAILY 10/13/24 10/13/24 History Allergies Allergy/AdvReac Type Severity Reaction Status Date / Time fentanyl AdvReac apnea Verified 10/13/24 13:05 Physical Exam Vitals: Vital Signs Temp Pulse Pulse Resp BP BP Pulse Ox 10/14/24 07:10 97.6 F 61 17 119/68 98 10/14/24 00:09 97.7 F 86 15 130/77 96 10/13/24 19:09 98.7 F 100 16 142/76 96 10/13/24 16:56 98.1 F 96 16 122/84 108 H 10/13/24 16:09 105 H 14 117/91 97 10/13/24 13:09 96 16 136/86 96 10/13/24 12:16 91 16 141/91 98 10/13/24 11:00 97 16 131/91 95 10/13/24 10:25 92 16 105/100 96 10/13/24 09:48 98.3 F 104 H 20 127/77 97 Intake and Output 10/13/24 10/14/24 10/14/24 22:59 06:59 14:59 Other: # Voids 2 1 Weight 91.626 kg Results 10/14/24 04:35 10/14/24 04:35 Cardiac Enzymes 10/13/24 10/13/24 10/13/24 Range/Units 10:57 10:57 14:55 AST 34 (17-59) U/L Troponin I <0.012 <0.012 (0.000-0.034) ng/mL 10/13/24 10/14/24 Range/Units 18:43 04:35 AST 31 (17-59) U/L Troponin I <0.012 (0.000-0.034) ng/mL Coagulation 10/13/24 Range/Units 10:57 PT 10.7 (10.0-12.5) sec APTT 23.6 (22.0-30.0) sec CBC 10/13/24 Range/Units 10:57 WBC 9.0 (3.8-10.6) k/uL RBC 4.56 (4.30-5.90) m/uL Hgb 14.3 (13.0-17.5) gm/dL Hct 41.1 (39.0-53.0) % Plt Count 176 (150-450) k/uL Comprehensive Metabolic Panel 10/13/24 10/14/24 Range/Units 10:57 04:35 Sodium 135 L 138 (137-145) mmol/L Potassium 4.1 3.8 (3.5-5.1) mmol/L Chloride 104 105 (98-107) mmol/L Carbon Dioxide 26 24.4 (22-30) mmol/L BUN 29 H 13.5 (9-20) mg/dL Creatinine 0.75 0.8 (0.66-1.25) mg/dL Glucose 127 H 104 (74-99) mg/dL Calcium 8.4 7.9 L (8.4-10.2) mg/dL AST 34 31 (17-59) U/L ALT 30 27 (4-49) U/L Alkaline Phosphatase 57 49 (38-126) U/L Total Protein 6.7 5.4 L (6.3-8.2) g/dL Albumin 4.5 3.7 L (3.5-5.0) g/dL Current Medications Generic Name Dose Route Start Last Admin Trade Name Freq PRN Reason Stop Dose Admin Acetaminophen 650 mg 10/13/24 12:13 Acetaminophen Tab 325 Mg Tab PO Q6HR PRN Mild Pain or Fever > 100.5 Enoxaparin Sodium 40 mg 10/14/24 09:00 Enoxaparin 40 Mg/0.4 Ml Syringe SQ DAILY JC Sodium Chloride 1,000 mls @ 75 mls/hr 10/13/24 12:15 10/14/24 03:10 Saline 0.9% IV 75 mls/hr .[id number] JC Administration Ibuprofen 400 mg 10/13/24 12:13 10/14/24 00:01 Ibuprofen 400 Mg Tab PO 400 mg Q6HR PRN Administration Mild Pain or Fever > 100.5 Naloxone HCl 0.2 mg 10/13/24 12:13 Naloxone 0.4 Mg/Ml 1 Ml Vial IV Q2M PRN Opioid Reversal Ondansetron HCl 4 mg 10/13/24 12:13 10/13/24 17:17 Ondansetron 4 Mg/2 Ml Vial IVP 4 mg Q8HR PRN Administration Nausea And Vomiting Pantoprazole Sodium 40 mg 10/13/24 13:15 10/14/24 05:21 Pantoprazole 40 Mg Tablet PO Not Given [id number] JC Tramadol HCl 50 mg 10/13/24 18:34 10/13/24 19:23 Tramadol 50 Mg Tab PO 50 mg QID PRN Administration Moderate to Severe Pain (4-10) Intake and Output 10/13/24 10/14/24 10/14/24 22:59 06:59 14:59 Other: # Voids 2 1 Weight 91.626 kg 10/13/24 10:57 10/14/24 04:35
[2024-10-14 14:37] VITALS: BP 137/87; PULSE 76; TEMP 98.1
--- NOTE | 2024-10-14 14:46 | P.DS ---
Providers Date of admission: 10/13/24 11:25 Expected date of discharge: 10/14/24 Attending physician: Emmy Pantoja Consults: 10/13/24 12:47 Consult Physician Routine Consulting Provider: Kavya Rodriguez Consult Reason/Comments: syncope Do you want consulting provider notified?: Yes Primary care physician: Emmy Pantoja [facility] Course: Diagnosis on discharge: Gastroenteritis with nausea vomiting and diarrhea Mild dehydration with elevated BUN Syncopal episode Previous history of 1 episode of atrial fibrillation Underlying history of gastroesophageal reflux disease Hospital course: Armond Feliz, is a 53-year-old male, who presented to [facility] emergency room with a chief complaint of chest pain, patient states that he had nausea and vomiting for the last 2 days, subsequently he started having chest discomfort and shortness of breath. Patient describes chest tightness with shortness of breath that is worse with exertion, he denies any radiation of the pain to the jaw or left arm, he denies any diaphoresis. He was evaluated in the emergency room vital examination on presentation reveale d a temperature of 98.2 pulse 108 respiration 16 blood pressure 154/93 pulse ox 97% on room air Laboratory data revealed a white blood count of 11.3 hemoglobin 14.4 platelet count 322 D-dimer 0.42 BUN 9 creatinine 0.82 troponin level 0.012 amylase 44 lipase 60 Testing in the emergency room revealed chest x-ray done in the emergency room revealed no acute cardiopulmonary disease Patient was admitted to medical floor for further evaluation and treatment Past medical history is significant for history of hypertension, history of right ankle surgery, with chronic right ankle pain maintained on narcotics for pain management, history of morbid obesity, history of chronic bilateral lower extremity edema, history of previous admission with chest pain in March 2024, stress echocardiogram was normal at that time. On 10/14/2024 patient was seen and examined on the medical floor, he is alert and oriented x 3 in no apparent distress there is no fever or chills no headache or dizziness, no chest pain or shortness of breath he was still complaining of nausea but no new episodes of vomiting no abdominal pain, no diarrhea no blood in the stools no burning with urination no frequency or urgency and no hematuria. Patient underwent echocardiogram carotid Doppler and abdominal ultrasounds, results are still pending, however patient decided to leave the hospital AGAINST MEDICAL ADVICE prior to having test results. Patient Condition at Discharge: Stable Plan - Discharge Summary New Discharge Prescriptions: No Action Omeprazole 20 mg PO DAILY atenoloL [Tenormin] 50 mg PO DAILY Levothyroxine Sodium [Synthroid] 50 mcg PO DAILY Discharge Medication List Omeprazole 20 mg PO DAILY 06/20/19 [History] Levothyroxine Sodium [Synthroid] 50 mcg PO DAILY 10/13/24 [History] atenoloL [Tenormin] 50 mg PO DAILY 10/13/24 [History] Follow up Appointment(s)/Referral(s): Emmy Pantoja MD [Primary Care Provider] - 1-2 days
--- NOTE | 2024-10-14 16:15 | P.DS ---
Providers Date of admission: 10/13/24 11:25 Expected date of discharge: 10/14/24 Attending physician: Emmy Pantoja Consults: 10/13/24 12:47 Consult Physician Routine Consulting Provider: Kavya Rodriguez Consult Reason/Comments: syncope Do you want consulting provider notified?: Yes Primary care physician: Emmy Scarlett [facility] Course: Diagnosis on discharge: Gastroenteritis with nausea vomiting and diarrhea Mild dehydration with elevated BUN Syncopal episode Previous history of 1 episode of atrial fibrillation Underlying history of gastroesophageal reflux disease Hospital course: Marco Garcia, is a 54-year-old male who presented to [facility] emergency room with a chief complaint of syncope. Patient stated that he was then referred to you for multiple hockey games, he came back late at night and ate a frozen meal and went to sleep, he woke up several hours later with nausea vomiting and diarrhea, subsequently he felt dizzy and passed out going down 1 flight of stairs, he woke up on the bottom of the stairs, he is not sure for how long he was unconscious. He was evaluated in the emergency room vital examination on presentation revealed a temperature of 98.3 pulse 104 respiration 20 blood pressure 127/77 pulse ox 97% on room air Laboratory data revealed a white blood count of 9.0 hemoglobin 14.3 platelet count 176 D-dimer 0.28 troponin 0.012, COVID-19 and influenza A and B and RSV PCR are all negative. 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 Chest x-ray done in the emergency room revealed no significant abnormality no acute cardiopulmonary disease. Patient was admitted to medical floor for further evaluation and treatment Past medical history is significant for 1 episode of atrial fibrillation 12 years ago, history of closed head injury, history of gastroesophageal reflux disease On review of systems patient is alert and oriented x 3 in no apparent distress, he is complaining of neck pain, otherwise he denies any complaints at this time there is no fever or chills no headache or dizziness no chest pain no shortness of breath no cough no nausea or vomiting no abdominal pain no diarrhea and no urinary symptoms. On 10/14/2024 patient was seen and examined on the medical floor, he is alert and oriented x 3 in no apparent distress there is no fever or chills no headache or dizziness, no chest pain or shortness of breath he was still complaining of nausea but no new episodes of vomiting no abdominal pain, no diarrhea no blood in the stools no burning with urination no frequency or urgency and no hematuria. Patient underwent echocardiogram carotid Doppler and abdominal ultrasounds, results are still pending, however patient decided to leave the hospital AGAINST MEDICAL ADVICE prior to having test results. Patient Condition at Discharge: Stable Plan - Discharge Summary New Discharge Prescriptions: No Action Omeprazole 20 mg PO DAILY atenoloL [Tenormin] 50 mg PO DAILY Levothyroxine Sodium [Synthroid] 50 mcg PO DAILY Discharge Medication List Omeprazole 20 mg PO DAILY 06/20/19 [History] Levothyroxine Sodium [Synthroid] 50 mcg PO DAILY 10/13/24 [History] atenoloL [Tenormin] 50 mg PO DAILY 10/13/24 [History] Follow up Appointment(s)/Referral(s): Emmy Pantoja MD [Primary Care Provider] - 1-2 days Discharge Disposition: LEFT AGAINST MEDICAL ADVICE
== END 2024-10-14 14:25 | disposition left against medical advice (07) ==
LOC: EC 09:43 → 6NMEDSUR 11:25
PROVIDERS: ADMIT Internal Medicine; ATTEND Internal Medicine
DX: K52.9 Noninfective gastroenteritis and colitis, unspecified (principal); E86.0 Dehydration; R55 Syncope and collapse; M54.2 Cervicalgia; I48.91 Unspecified atrial fibrillation; I65.23 Occlusion and stenosis of bilateral carotid arteries; G93.89 Other specified disorders of brain; E03.9 Hypothyroidism, unspecified; I10 Essential (primary) hypertension; K21.9 Gastro-esophageal reflux disease without esophagitis; Z88.5 Allergy status to narcotic agent; Z79.82 Long term (current) use of aspirin; Z79.891 Long term (current) use of opiate analgesic; Z79.899 Other long term (current) drug therapy; Z79.890 Hormone replacement therapy; Z53.29 Procedure and treatment not carried out because of patient's decision for other reasons
CPT/HCPCS: 96374; 96375; 99285; 36415; 93005; 85379; 80053 ×2; 83735; 84484; 85025 ×2; 85610; 85730; 81003; 87636; 71046; 76700; 93880; 72125; 70450; G0378 ×2; J2405; J1885